=== PATIENT | male | born 1950 ===

== ENCOUNTER 2018-12-20 10:16 | Outpatient (CLI) | payer MEDICARE | END 2018-12-20 10:17 | disposition home or self-care (01) | LOC: C.CTH 10:16 ==

== ENCOUNTER 2018-12-30 08:08 | Outpatient (CLI) | payer MEDICARE | END 2018-12-30 08:09 | disposition home or self-care (01) | LOC: C.PAT 08:08 | DX: Z01.818 Encounter for other preprocedural examination (principal); I72.3 Aneurysm of iliac artery ==

== ENCOUNTER 2019-01-06 05:41 | Inpatient (IN) | payer MEDICARE ==
[2018-12-30 08:17] VITALS: BMI 27.7
[2019-01-06] MEDS ORDERED: Propofol 10 mg/ml Inj (20 ML) ONE ×2 (06:59→10:02)
[2019-01-06] MEDS ORDERED: Midazolam 2 MG/2 ML VIAL ONE (06:59)
[2019-01-06] MEDS ORDERED: HEPARIN-NS 5,000 UNITS/500 ML 5,000 UNIT/500 ML BAG IV ONE (07:18)
[2019-01-06] MEDS ORDERED: Lidocaine Hydrochloride 10 ML INJ ONE (07:18)
[2019-01-06] MEDS ORDERED: ceFAZolin 1 gm in NS 2 GM/200 ML BAG IVPB ONE (07:18)
[2019-01-06] MEDS ORDERED: Iohexol 240 200 ML ONE (07:38)
[2019-01-06] MEDS ORDERED: HEPARIN-NS 5,000 UNITS/500 ML 10,000 UNIT/1,000 ML BAG IV ONE ×2 (07:52→09:58)
[2019-01-06] MEDS ORDERED: Iodixanol 320 MG/ML 200 ML BOTTLE IV ONE ×2 (07:52)
[2019-01-06] MEDS ORDERED: Lidocaine Hydrochloride 20 ML INJ ONE (10:02)
[2019-01-06] MEDS ORDERED: HEPARIN NS IV ONE (10:36)
--- NOTE | 2019-01-06 11:37 | PCM.SURG1 ---
Surgeon's Initial Post Op Note - Surgeon's Notes Surgeon: MD Olamide Manager Of Clinical: Isa, PGY3 Pre-Operative Diagnosis: Right iliac artery aneurysm Operative Findings: right iliac artery aneurysm Post-Operative Diagnosis: Right iliac artery aneurysm Operation Performed: Right internal iliac artery embolization, deployment of AFX graft, right external iliac artery stent placement Specimen/Specimens Removed: none Estimated Blood Loss: EBL {In ML}: 150 Drains Used: No Drains Post-Op Condition: Fair Date of Surgery/Procedure: 01/06/19 Time of Surgery/Procedure: 09:00
[2019-01-06] MEDS ORDERED: HYDROmorphone 0.5 mg/0.5 ml ISec IVP PRN ×2 (11:38→11:43)
[2019-01-06] MEDS: Sodium Chloride 0.9% 1,000 ML IV SCH ×4 (12:12→21:21)
[2019-01-06 13:47] LABS: MEAN CELL VOLUME 95.5 fL (80.0-94.0); MEAN CORPUSCULAR HEMOGLOBIN 31.7 pg (27.0-31.0); MEAN CORPUSCULAR HGB CONC 33.2 g/dL (33.0-37.0); MEAN PLATELET VOLUME 8.5 fL (7.2-11.7); RBC 3.65 Mil/uL (4.40-5.90); RED CELL DISTRIBUTION WIDTH 13.4 % (11.5-14.5)
[2019-01-06 13:59] LABS: BLOOD UREA NITROGEN 12 mg/dL (9-20); CALCIUM 7.6 mg/dl (8.6-10.4); GFR NON-AFRICAN AMERICAN > 60
[2019-01-06 14:03] LABS: HEMOGLOBIN 11.6 g/dL (12.0-18.0)
[2019-01-06 14:05] LABS: INR 1.2; PROTHROMBIN TIME 12.8 SECONDS (9.7-12.2)
--- NOTE | 2019-01-06 17:21 | RAD ---
HISTORY: Hypotensive COMPARISON: Chest x-ray performed 12/30/18 TECHNIQUE: Chest, one view. FINDINGS: LUNGS: No focal consolidation. Please note that chest x-ray has limited sensitivity for the detection of pulmonary masses. PLEURA: No significant pleural effusion identified. No definite pneumothorax . CARDIOVASCULAR: Heart size appears top normal. No significant atherosclerotic calcification present. OSSEOUS STRUCTURES: Degenerative changes of the spine. VISUALIZED UPPER ABDOMEN: Unremarkable. OTHER FINDINGS: None. IMPRESSION: No focal consolidation.
--- NOTE | 2019-01-06 18:46 | CP.PCM.CON ---
History of Present Illness - History of Present Illness History of Present Illness: Critical care consult note for Dr. Deleon. Consult for hypotension post op R iliac artery emplization, deployment of AFX graft & stent placement 68 male w PMhx of HTN & HLDpresents as same day surgery for iliac artery aneurysm. Post op, patient had hypotension w/ SBP in 80s. Patient had approx 150 cc blood loss during procedure. Patient received 3 L of fluids and SBP in 100s. Patient transferred to telemetry for overnight observation. During examination patient states he has lower abdominal pain 5/10 and left arm pain. Patient states it is 5/10 and feels like he may have slept awkwardly resulting in pain. ROS: Denies headaches, vision changes, chest pain, SOB, nausea, vomiting, diarrhea, constipation Pmhx: HTN Meds: see EMR PShx: appendectomy & prostate surgery Allergies: NKDA Shx; denies smoking, drinking, illicit drug use Review of Systems - Constitutional Constitutional: absent: Chills, Fever - EENT Eyes: absent: Blurred Vision, Diplopia Ears: absent: Dizziness Nose/Mouth/Throat: absent: Nose Pain - Cardiovascular Cardiovascular: absent: Chest Pain, Chest Pain at Rest, Dyspnea - Respiratory Respiratory: absent: Dyspnea, Stridor - Gastrointestinal Gastrointestinal: absent: Abdominal Pain, Bloating - Genitourinary Genitourinary: Other (lower abdominal pain ). absent: Difficulty Urinating, Pyuria - Musculoskeletal Musculoskeletal: Other. absent: Arthralgias, Atrophy Additional comments: Left arm soreness - Integumentary Integumentary: absent: Alopecia - Neurological Neurological: absent: Dizziness, Headaches - Hematologic/Lymphatic Hematologic: absent: Easy Bleeding, Easy Bruising Past Patient History - Past Medical History & Family History Past Medical History?: Yes - Past Social History Smoking Status: Never Smoked - CARDIAC Hx Cardiac Disorders: Yes Hx Hypercholesterolemia: Yes Hx Hypertension: Yes Other/Comment: ILIAC ARTEY ANEURYSM - PULMONARY Hx Respiratory Disorders: Yes Hx Bronchitis: Yes (2014) - NEUROLOGICAL Hx Neurological Disorder: No - HEENT Hx HEENT Problems: Yes Hx Cataracts: No Other/Comment: EXC VOCAL CORD MASS - RENAL Hx Chronic Kidney Disease: No - ENDOCRINE/METABOLIC Hx Endocrine Disorders: No - HEMATOLOGICAL/ONCOLOGICAL Hx Blood Disorders: No - INTEGUMENTARY Hx Dermatological Problems: No - MUSCULOSKELETAL/RHEUMATOLOGICAL Hx Falls: Yes - GASTROINTESTINAL Hx Gastrointestinal Disorders: No - GENITOURINARY/GYNECOLOGICAL Hx Genitourinary Disorders: Yes Hx Prostate Problems: Yes - PSYCHIATRIC Hx Substance Use: No - SURGICAL HISTORY Hx Surgeries: Yes Hx Appendectomy: Yes Hx Arthroscopy: Yes (right knee) Hx Cataract Extraction: Yes (ROSALES) Hx Eye Surgery: Yes Other/Comment: lesion nose - ANESTHESIA Hx Anesthesia: Yes Hx Anesthesia Reactions: No Hx Malignant Hyperthermia: No Has any member of the family had a problem w/ anesthesia?: No Meds Allergies/Adverse Reactions: Allergies Allergy/AdvReac Type Severity Reaction Status Date / Time No Known Allergies Allergy Verified 12/30/18 08:16 - Medications Medications: Current Medications Heparin Sodium (Porcine) (Heparin) 5,000 units SC Q8 [facility] Last Admin: 01/06/19 13:15 Dose: Not Given Hydromorphone HCl (Dilaudid) 0.5 mg IVP Q6H PRN PRN Reason: Pain, severe (8-10) Last Admin: 01/06/19 17:52 Dose: 0.5 mg Sodium Chloride (Sodium Chloride 0.9%) 1,000 mls @ 100 mls/hr IV .Q10H [facility] Last Admin: 01/06/19 18:30 Dose: 100 mls/hr Ondansetron HCl (Zofran Inj) 4 mg IVP Q4 PRN PRN Reason: Nausea/Vomiting Physical Exam - Constitutional Appears: Well, Non-toxic, No Acute Distress - Head Exam Head Exam: ATRAUMATIC, NORMAL INSPECTION - Eye Exam Eye Exam: EOMI, Normal appearance Pupil Exam: PERRL - ENT Exam ENT Exam: Mucous Membranes Moist - Respiratory Exam Respiratory Exam: Clear to Auscultation Bilateral, NORMAL BREATHING PATTERN. absent: Rales, Rhonchi, Wheezes - Cardiovascular Exam Cardiovascular Exam: +S1, +S2. absent: Systolic Murmur - GI/Abdominal Exam GI & Abdominal Exam: Normal Bowel Sounds, Soft, Tenderness Additional comments: Lower quads b/l dressing clean and dry - Extremities Exam Extremities exam: Positive for: full ROM, normal inspection. Negative for: calf tenderness, pedal edema - Neurological Exam Neurological exam: Alert, Oriented x3 - Psychiatric Exam Psychiatric exam: Normal Affect, Normal Mood - Skin Skin Exam: Dry, Intact, Normal Color, Warm Results - Vital Signs Recent Vital Signs: Last Vital Signs Temp 98.2 F 01/06/19 17:15 Pulse 70 01/06/19 18:18 Resp 19 01/06/19 18:00 BP 100/61 01/06/19 17:36 Pulse Ox 95 01/06/19 18:18 - Labs Result Diagrams: 01/06/19 13:42 01/06/19 13:42 Labs: Laboratory Results - last 24 hr 01/06/19 01/06/19 01/06/19 13:42 13:42 13:42 WBC 8.0 RBC 3.65 L Hgb 11.6 L D Hct 34.8 L MCV 95.5 H MCH 31.7 H MCHC 33.2 RDW 13.4 Plt Count 121 L D MPV 8.5 Differential Comment PT 12.8 H INR 1.2 APTT 90 H Sodium 138 Potassium 3.7 Chloride 107 Carbon Dioxide 28 Anion Gap 7 L BUN 12 Creatinine 0.7 L Est GFR ( Amer) > 60 Est GFR (Non-Af Amer) > 60 Random Glucose 94 D Calcium 7.6 L Assessment & Plan - Assessment and Plan (Free Text) Assessment: 68 M w/ Pmhx of HTN, HLD presents for SDS for repair of R iliac aneurysm; s/p interal iliac artery embolization, deployment of AFX graft, external iliac artery stent placement, POD #0, hypotensive post op requiring 3 L of fluid, currently monitoring 1) Hypotension 2) R iliac artery aneurysm 3) hyperlipidemia Plan: Neuro - A& O x3 Cardio - SBP in 100s, s/p 3 L fluids - continue to monitor - hold anti-HTN meds Resp - vitals WNL - continue to monitor GI - Regular diet Heme - H/H 11.6/ 34.8 - repeat AM labs - WBC wnl Renal - BUN/Cr - stable - fairchild in place PPx - DVT: heparin 5000 units Q8, SCds - GI: not indicated
--- NOTE | 2019-01-07 03:19 | OP ---
PROCEDURE DATE: 01/06/2019 PREOPERATIVE DIAGNOSIS: Right common iliac artery aneurysm. POSTOPERATIVE DIAGNOSIS: Right common iliac artery aneurysm. PROCEDURE: Endovascular repair of right common iliac artery aneurysm using AFX Endologix device, the exact size was main body 28 x 70 with 20 x 30 limbs and an Ovation right extension measuring 12 mm in diameter. DESCRIPTION OF PROCEDURE: The patient was given local anesthesia, intravenous antibiotics. A catheter was advanced from the left side over the aortic bifurcation and into the left internal iliac artery. Then, using Natasha Coils and POD, we embolized the right internal iliac artery and extended this up just from its bifurcation of pelvis. After this has been accomplished, we then made a percutaneous puncture on the right side pre-deployed Perclose devices and then deployed a 12 mm Ovation limb on this side just to the region of the aortic bifurcation. We then brought the main body at the left side of the AFX graft, deployed at the appropriate level, used the appropriate measures to lasso or snare the Glidewire associated with it and then deployed this in the appropriate fashion at the aortic bifurcation. After this had been deployed completely, we then checked again with angiography confirming that there was no evidence of any endoleak, that the right common iliac artery was completely sealed off and that the right internal had been appropriately embolized with no flow seen. We then closed the Perclose devices in both groins that were previously deployed. So, at the end, we then did a percutaneous endovascular repair of the right common iliac artery aneurysm using a bifurcated Endologix graft. We did coil embolization of the right internal iliac artery having deployed the stent outside the zone into the right external iliac artery. Blood loss for the procedure was approximately 150 mL. Hasnel Quiñonez Jr., MD cc: MD Dr. Pérez Qureshi
[2019-01-07] MEDS: Sodium Chloride 0.9% 1,000 ML IV SCH ×4 (04:14→18:17)
[2019-01-07 06:30] LABS: BASO % 0.3 % (0.0-2.0); EOS % 0.6 % (0.0-4.0); HEMOGLOBIN 11.9 g/dL (12.0-18.0); LYMPH # 1.1 K/uL (1.0-4.3); LYMPH % 14.4 % (20.0-40.0); MEAN CELL VOLUME 95.9 fL (80.0-94.0); MEAN CORPUSCULAR HEMOGLOBIN 32.1 pg (27.0-31.0); MEAN CORPUSCULAR HGB CONC 33.5 g/dL (33.0-37.0); MEAN PLATELET VOLUME 9.4 fL (7.2-11.7); MONO # 0.7 K/uL (0.0-0.8); MONO % 9.4 % (0.0-10.0); NEUT % 75.3 % (50.0-75.0); NRBC % 0.1 % (0.0-2.0); RBC 3.7 Mil/uL (4.40-5.90); RED CELL DISTRIBUTION WIDTH 13.8 % (11.5-14.5); WHITE BLOOD COUNT 7.9 K/uL (4.8-10.8)
[2019-01-07 06:51] LABS: ALB/GLOB RATIO 1.3 (1.0-2.1); ALBUMIN 3.4 g/dL (3.5-5.0); ALT/SGPT 25 U/L (21-72); AST/SGOT 31 U/L (17-59); BLOOD UREA NITROGEN 11 mg/dL (9-20); CALCIUM 8.2 mg/dl (8.6-10.4); GFR NON-AFRICAN AMERICAN > 60
--- NOTE | 2019-01-07 09:02 | CP.PCM.DIS ---
Provider - Provider Date of Admission: 01/06/19 11:37 Attending physician: Hansel Quiñonez Jr, MD Primary care physician: Donavon Ortez MD Consults: 01/06/19 19:45 Social Work Referral Routine Comment: see pt Physician Instructions: see pt Reason For Exam: meme score 7 Time Spent in preparation of Discharge (in minutes): 40 Hospital Course - Lab Results Lab Results: Most Recent Lab Values WBC 7.9 K/uL (4.8-10.8) 01/07/19 06:14 RBC 3.70 Mil/uL (4.40-5.90) L 01/07/19 06:14 Hgb 11.9 g/dL (12.0-18.0) L 01/07/19 06:14 Hct 35.5 % (35.0-51.0) 01/07/19 06:14 MCV 95.9 fL (80.0-94.0) H 01/07/19 06:14 MCH 32.1 pg (27.0-31.0) H 01/07/19 06:14 MCHC 33.5 g/dL (33.0-37.0) 01/07/19 06:14 RDW 13.8 % (11.5-14.5) 01/07/19 06:14 Plt Count 111 K/uL (130-400) L 01/07/19 06:14 MPV 9.4 fL (7.2-11.7) 01/07/19 06:14 Neut % (Auto) 75.3 % (50.0-75.0) H 01/07/19 06:14 Lymph % (Auto) 14.4 % (20.0-40.0) L 01/07/19 06:14 [place] % (Auto) 9.4 % (0.0-10.0) 01/07/19 06:14 Eos % (Auto) 0.6 % (0.0-4.0) 01/07/19 06:14 Baso % (Auto) 0.3 % (0.0-2.0) 01/07/19 06:14 Neut # (Auto) 6.0 K/uL (1.8-7.0) 01/07/19 06:14 Lymph # (Auto) 1.1 K/uL (1.0-4.3) 01/07/19 06:14 [place] # (Auto) 0.7 K/uL (0.0-0.8) 01/07/19 06:14 Eos # (Auto) 0.0 K/uL (0.0-0.7) 01/07/19 06:14 Baso # (Auto) 0.0 K/uL (0.0-0.2) 01/07/19 06:14 Differential Comment 01/06/19 13:42 PT 12.8 SECONDS (9.7-12.2) H 01/06/19 13:42 INR 1.2 01/06/19 13:42 APTT 90 SECONDS (21-34) H 01/06/19 13:42 Sodium 136 mmol/L (132-148) 01/07/19 06:14 Potassium 3.8 mmol/L (3.6-5.2) 01/07/19 06:14 Chloride 103 mmol/L (98-107) 01/07/19 06:14 Carbon Dioxide 25 mmol/L (22-30) 01/07/19 06:14 Anion Gap 12 (10-20) 01/07/19 06:14 BUN 11 mg/dL (9-20) 01/07/19 06:14 Creatinine 0.8 mg/dL (0.8-1.5) 01/07/19 06:14 Est GFR ( Amer) > 60 01/07/19 06:14 Est GFR (Non-Af Amer) > 60 01/07/19 06:14 Random Glucose 107 mg/dL (75-110) 01/07/19 06:14 Calcium 8.2 mg/dl (8.6-10.4) L 01/07/19 06:14 Phosphorus 2.9 mg/dL (2.5-4.5) 01/07/19 06:14 Magnesium 1.8 mg/dL (1.6-2.3) 01/07/19 06:14 Total Bilirubin 0.4 mg/dL (0.2-1.3) 01/07/19 06:14 AST 31 U/L (17-59) 01/07/19 06:14 ALT 25 U/L (21-72) 01/07/19 06:14 Alkaline Phosphatase 50 U/L (38-126) 01/07/19 06:14 Total Protein 6.0 g/dL (6.3-8.3) L 01/07/19 06:14 Albumin 3.4 g/dL (3.5-5.0) L 01/07/19 06:14 Globulin 2.6 gm/dL (2.2-3.9) 01/07/19 06:14 Albumin/Globulin Ratio 1.3 (1.0-2.1) 01/07/19 06:14 - Hospital Course Hospital Course: 68M seen and examined at bedside. Patient presented as same day surgery for right internal iliac embolism , AFX graft, right external iliac stent for right iliac artery aneurysm. Patient was monitored in the ICU overnight for pulse checks and groin checks. Patient did well overnight. Discharge Exam - Head Exam Head Exam: ATRAUMATIC, NORMAL INSPECTION - Respiratory Exam Respiratory Exam: Clear to PA & Lateral, NORMAL BREATHING PATTERN - Cardiovascular Exam Cardiovascular Exam: REGULAR RHYTHM, +S1, +S2 - GI/Abdominal Exam GI & Abdominal Exam: Soft. absent: Distended, Firm, Guarding, Rebound, Rigid, Tenderness Additional comments: groin check no hematoma, clean dry intact - Extremities Exam Extremities exam: pedal pulses present - Neurological Exam Neurological exam: Alert, Oriented x3 Discharge Plan - Follow Up Plan Condition: GOOD Disposition: HOME/ ROUTINE Instructions: Peripheral Vascular Stenting (DC) Referrals: Donavon Ortez MD [Primary Care Provider] - Hansel Quiñonez Jr., MD [Staff Provider] -
--- NOTE | 2019-01-07 11:01 | RAD ---
PROCEDURE: HISTORY: As above COMPARISON: None TECHNIQUE: Total fluoroscopic time utilized during the procedure: 2175 seconds ; 625.35 mGy FINDINGS: Submitted images from the current procedure: 10 Please refer to the physician's notes performing the procedure. IMPRESSION: Less than 1 hour fluoroscopic time utilized during performance of the procedure
[2019-01-07] MEDS ORDERED: Sodium Chloride 0.9% 500 ML IV ONE (11:14)
--- NOTE | 2019-01-07 14:48 | CP.CCUPN ---
CCU Subjective - Physician Review Subjective (Free Text): Critical care progress note for Dr. Yanez. Patient seen and examined at bedside. NO acute events overnight. Patient is s/p R iliac stenting, POD #1. Patient offers no complaints this AM. CCU Objective - Vital Signs / Intake & Output Vital Signs (Last 4 hours): Vital Signs Temp Pulse Resp BP Pulse Ox 01/07/19 14:00 82 19 109/60 96 01/07/19 13:01 89 14 113/76 01/07/19 13:00 94 H 15 90 L 01/07/19 12:00 98.6 F 83 19 103/55 L 97 01/07/19 11:00 82 15 88/54 L 96 Intake and Output (Last 8hrs): Intake & Output 01/06/19 01/07/19 01/07/19 22:59 06:59 14:59 Intake Total 750 1140 2020 Output Total 2000 1600 1300 Balance -1250 -460 720 Weight 175 lb 0.752 oz 176 lb Intake: Intake, IV Amount 004 300 2139 Left Hand 311 242 7201 Oral 250 240 920 Output: Urine 2000 1600 1300 Urethral (Fairchild) 1100 1600 0 Urine, Voided 1300 Stool 0 Other: Voiding Method Indwelling Catheter # Voids Urine, Voided 1 - Physical Exam Head: Positive for: Atraumatic, Normocephalic Pupils: Positive for: PERRL Extroacular Muscles: Positive for: EOMI Conjunctiva: Positive for: Normal Mouth: Positive for: Moist Mucous Membranes Abdomen: Positive for: Other (dressing, clean, dry, intact ). Negative for: Tenderness, Distention Upper Extremity: Positive for: Normal Inspection. Negative for: Cyanosis Lower Extremity: Positive for: Normal Inspection. Negative for: Edema Skin: Positive for: Warm, Dry, Normal Color. Negative for: Rashes Psychiatric: Positive for: Oriented x 3 - Medications Active Medications: Active Medications Generic Name Dose Route Start Last Admin Trade Name Freq PRN Reason Stop Dose Admin Heparin Sodium (Porcine) 5,000 units 01/06/19 14:00 01/07/19 14:18 Heparin SC 5,000 units Q8 [facility] Administration Hydromorphone HCl 0.5 mg 01/06/19 11:43 01/06/19 17:52 Dilaudid IVP 0.5 mg Q6H PRN Administration Pain, severe (8-10) Sodium Chloride 1,000 mls @ 100 mls/hr 01/06/19 12:00 01/07/19 10:48 Sodium Chloride 0.9% IV Not Given .Q10H [facility] Ondansetron HCl 4 mg 01/06/19 11:43 Zofran Inj IVP Q4 PRN Nausea/Vomiting - Patient Studies Lab Studies: Lab Studies 01/07/19 01/07/19 01/06/19 Range/Units 06:14 06:14 13:42 WBC 7.9 8.0 (4.8-10.8) K/uL RBC 3.70 L 3.65 L (4.40-5.90) Mil/uL Hgb 11.9 L 11.6 L D (12.0-18.0) g/dL Hct 35.5 34.8 L (35.0-51.0) % MCV 95.9 H 95.5 H (80.0-94.0) fL MCH 32.1 H 31.7 H (27.0-31.0) pg MCHC 33.5 33.2 (33.0-37.0) g/dL RDW 13.8 13.4 (11.5-14.5) % Plt Count 111 L 121 L D (130-400) K/uL MPV 9.4 8.5 (7.2-11.7) fL Neut % (Auto) 75.3 H (50.0-75.0) % Lymph % (Auto) 14.4 L (20.0-40.0) % [place] % (Auto) 9.4 (0.0-10.0) % Eos % (Auto) 0.6 (0.0-4.0) % Baso % (Auto) 0.3 (0.0-2.0) % Neut # (Auto) 6.0 (1.8-7.0) K/uL Lymph # (Auto) 1.1 (1.0-4.3) K/uL [place] # (Auto) 0.7 (0.0-0.8) K/uL Eos # (Auto) 0.0 (0.0-0.7) K/uL Baso # (Auto) 0.0 (0.0-0.2) K/uL Differential Comment Sodium 136 (132-148) mmol/L Potassium 3.8 (3.6-5.2) mmol/L Chloride 103 (98-107) mmol/L Carbon Dioxide 25 (22-30) mmol/L Anion Gap 12 (10-20) BUN 11 (9-20) mg/dL Creatinine 0.8 (0.8-1.5) mg/dL Est GFR ( Amer) > 60 Est GFR (Non-Af Amer) > 60 Random Glucose 107 (75-110) mg/dL Calcium 8.2 L (8.6-10.4) mg/dl Phosphorus 2.9 (2.5-4.5) mg/dL Magnesium 1.8 (1.6-2.3) mg/dL Total Bilirubin 0.4 (0.2-1.3) mg/dL AST 31 (17-59) U/L ALT 25 (21-72) U/L Alkaline Phosphatase 50 (38-126) U/L Total Protein 6.0 L (6.3-8.3) g/dL Albumin 3.4 L (3.5-5.0) g/dL Globulin 2.6 (2.2-3.9) gm/dL Albumin/Globulin Ratio 1.3 (1.0-2.1) Laboratory Results - last 24 hr 01/06/19 01/07/19 01/07/19 13:42 06:14 06:14 WBC 8.0 7.9 RBC 3.65 L 3.70 L Hgb 11.6 L D 11.9 L Hct 34.8 L 35.5 MCV 95.5 H 95.9 H MCH 31.7 H 32.1 H MCHC 33.2 33.5 RDW 13.4 13.8 Plt Count 121 L D 111 L MPV 8.5 9.4 Neut % (Auto) 75.3 H Lymph % (Auto) 14.4 L [place] % (Auto) 9.4 Eos % (Auto) 0.6 Baso % (Auto) 0.3 Neut # (Auto) 6.0 Lymph # (Auto) 1.1 [place] # (Auto) 0.7 Eos # (Auto) 0.0 Baso # (Auto) 0.0 Differential Comment Sodium 136 Potassium 3.8 Chloride 103 Carbon Dioxide 25 Anion Gap 12 BUN 11 Creatinine 0.8 Est GFR ( Amer) > 60 Est GFR (Non-Af Amer) > 60 Random Glucose 107 Calcium 8.2 L Phosphorus 2.9 Magnesium 1.8 Total Bilirubin 0.4 AST 31 ALT 25 Alkaline Phosphatase 50 Total Protein 6.0 L Albumin 3.4 L Globulin 2.6 Albumin/Globulin Ratio 1.3 Radiology Impressions: Radiology Impressions Fluoroscopy 01/06/19 13:34 IMPRESSION: Less than 1 hour fluoroscopic time utilized during performance of the procedure Chest X-Ray 01/06/19 16:05 IMPRESSION: No focal consolidation. Review of Systems - Constitutional Constitutional: absent: Fever, Sweats, Weakness, Malaise - EENT Eyes: UNREMARKABLE. absent: Blurred Vision, Discharge Ears: UNREMARKABLE Nose/Mouth/Throat: UNREMARKABLE. absent: Nose Pain - Cardiovascular Cardiovascular: UNREMARKABLE. absent: Chest Pain, Dyspnea - Respiratory Respiratory: UNREMARKABLE. absent: Dyspnea - Gastrointestinal Gastrointestinal: UNREMARKABLE. absent: Abdominal Pain, Diarrhea - Genitourinary Genitourinary: UNREMARKABLE - Musculoskeletal Musculoskeletal: UNREMARKABLE. absent: Arthralgias, Muscle Weakness - Integumentary Integumentary: UNREMARKABLE - Neurological Neurological: UNREMARKABLE - Psychiatric Psychiatric: UNREMARKABLE - Endocrine Endocrine: UNREMARKABLE Critical Care Progress Note - Prophylaxis GI Prophylaxis GI: Not Indicated - Prophylaxis DVT Prophylaxis DVT: Heparin SQ - Nutrition Nutrition: Nutrition Category Date Time Status Regular Diet [DIET] Diets 01/06/19 Dinner Active Assessment/Plan - Assessment and Plan (Free Text) Assessment: 68 M w/ Pmhx of HTN, HLD presents for SDS for repair of R iliac aneurysm; s/p interal iliac artery embolization, deployment of AFX graft, external iliac artery stent placement, POD #1, hypotensive post op requiring 3 L of fluid, currently monitoring. Patient stable for downgrade to medical floor. 1) Hypotension 2) R iliac artery aneurysm 3) hyperlipidemia Plan: Neuro - A& O x3 Cardio - SBP in 100s, s/p 3 L fluids post op - continue to monitor - hold anti-HTN meds Resp - vitals WNL - continue to monitor GI - Regular diet Heme - H/H stable - WBC wnl Renal - BUN/Cr - stable - fairchild in place PPx - DVT: heparin 5000 units Q8, SCds - GI: not indicated
[2019-01-08] MEDS: Sodium Chloride 0.9% 1,000 ML IV SCH (03:10)
[2019-01-08 08:03] LABS: ALB/GLOB RATIO 1.1 (1.0-2.1); ALBUMIN 3.1 g/dL (3.5-5.0); ALT/SGPT 30 U/L (21-72); AST/SGOT 21 U/L (17-59); BLOOD UREA NITROGEN 10 mg/dL (9-20); CALCIUM 7.9 mg/dl (8.6-10.4); GFR NON-AFRICAN AMERICAN > 60
[2019-01-08] MEDS ORDERED: Magnesium Citrate Oral SOL (300 ml) PO ONE (09:20)
--- NOTE | 2019-01-08 09:25 | CP.PCM.PN ---
Subjective - Date & Time of Evaluation Date of Evaluation: 01/08/19 Time of Evaluation: 09:25 - Subjective Subjective: had fever awaiting cbc and cxr cultures possible dc in pm Objective - Vital Signs/Intake and Output Vital Signs (last 24 hours): Temp Pulse Resp BP Pulse Ox 97.9 F 79 20 112/65 95 01/08/19 07:00 01/08/19 07:00 01/08/19 07:00 01/08/19 07:00 01/08/19 07:00 Intake and Output: 01/08/19 01/08/19 06:59 18:59 Intake Total 1999 Output Total 1999 Balance 0 - Medications Medications: Current Medications Acetaminophen (Tylenol 325mg Tab) 650 mg PO Q6 PRN PRN Reason: Fever >100.4 F Last Admin: 01/08/19 04:32 Dose: 650 mg Heparin Sodium (Porcine) (Heparin) 5,000 units SC Q8 [facility] Last Admin: 01/08/19 05:53 Dose: 5,000 units Hydromorphone HCl (Dilaudid) 0.5 mg IVP Q6H PRN PRN Reason: Pain, severe (8-10) Last Admin: 01/06/19 17:52 Dose: 0.5 mg Sodium Chloride (Sodium Chloride 0.9%) 1,000 mls @ 100 mls/hr IV .Q10H [facility] Last Admin: 01/08/19 03:10 Dose: 100 mls/hr Magnesium Citrate (Citrate Of Mag) 300 ml PO ONCE ONE Stop: 01/08/19 09:21 Ondansetron HCl (Zofran Inj) 4 mg IVP Q4 PRN PRN Reason: Nausea/Vomiting - Labs Labs: 01/07/19 06:14 01/08/19 07:20 PT 12.8 SECONDS (9.7-12.2) H 01/06/19 13:42 INR 1.2 01/06/19 13:42 APTT 90 SECONDS (21-34) H 01/06/19 13:42
--- NOTE | 2019-01-08 10:17 | RAD ---
Date of service: 01/08/2019 HISTORY: post op fever atelectasis COMPARISON: 01/06/2019 FINDINGS: LUNGS: No active pulmonary disease. Small nodular density at the left lung base laterally likely represents confluence of shadows with ribs and vessels. PLEURA: No significant pleural effusion identified, no pneumothorax apparent. CARDIOVASCULAR: No aortic atherosclerotic calcification present. Normal cardiac size. OSSEOUS STRUCTURES: No significant abnormalities. Foreshortening of the distal right clavicle. VISUALIZED UPPER ABDOMEN: Normal. OTHER FINDINGS: None. IMPRESSION: No active disease. Small nodular density at the left lung base laterally likely represents confluence of shadows with ribs and vessels.
[2019-01-08 10:39] LABS: BASO % 0.5 % (0.0-2.0); EOS # 0.1 K/uL (0.0-0.7); EOS % 1.3 % (0.0-4.0); HEMOGLOBIN 10.5 g/dL (12.0-18.0); LYMPH # 2.4 K/uL (1.0-4.3); LYMPH % 29.7 % (20.0-40.0); MEAN CELL VOLUME 95.1 fL (80.0-94.0); MEAN CORPUSCULAR HEMOGLOBIN 31.6 pg (27.0-31.0); MEAN CORPUSCULAR HGB CONC 33.2 g/dL (33.0-37.0); MEAN PLATELET VOLUME 9.6 fL (7.2-11.7); MONO % 11.8 % (0.0-10.0); NEUT # 4.6 K/uL (1.8-7.0); NEUT % 56.7 % (50.0-75.0); RBC 3.32 Mil/uL (4.40-5.90); RED CELL DISTRIBUTION WIDTH 13.9 % (11.5-14.5); WHITE BLOOD COUNT 8.2 K/uL (4.8-10.8)
[2019-01-08 16:40] VITALS: BP 113/72; PULSE 75; RESP 16; TEMP 98.5; O2SAT 98
== END 2019-01-08 16:44 | disposition home or self-care (01) | DRG 271 ==
LOC: C.SDS 05:41 → C.9S 11:37 → C.9I 16:57 → C.6T 01-07 17:55
PROVIDERS: ADMIT Surgery Vascular Surgery; ATTEND Surgery Vascular Surgery
PROC: 04VE3DZ Restriction of Right Internal Iliac Artery with Intraluminal Device, Percutaneous Approach (ICD-10-PCS; principal; 2019-01-06 07:45)
DX: I72.3 Aneurysm of iliac artery (principal); I74.5 Embolism and thrombosis of iliac artery; I10 Essential (primary) hypertension; E78.5 Hyperlipidemia, unspecified; I95.81 Postprocedural hypotension

== ENCOUNTER 2019-02-07 16:02 | Outpatient (CLI) | payer MEDICARE | END 2019-02-17 09:01 | disposition home or self-care (01) | LOC: C.LAB 16:02 ==

== ENCOUNTER 2019-02-24 12:10 | Outpatient (CLI) | payer MEDICARE | END 2019-02-24 12:11 | disposition home or self-care (01) | LOC: C.CTH 12:10 | DX: Z95.820 Peripheral vascular angioplasty status with implants and grafts (principal) ==